=== PATIENT | female | born 2000 | race Caucasian/White ===

== ENCOUNTER 2019-07-25 19:27 | Emergency (ER) | payer OTHER ==
--- NOTE | 2019-07-25 19:36 | PDOC ---
History of Present Illness - General Stated Complaint: Seizure Time Seen by Provider: 07/25/19 19:36 Past History - Past Medical History Allergies/Adverse Reactions: Allergies Allergy/AdvReac Type Severity Reaction Status Date / Time No Known Allergies Allergy Verified 07/25/19 21:14 Home Medications: Ambulatory Orders Valacyclovir HCl [Valtrex -] 1,000 mg PO TID #21 tablet 07/25/19 levETIRAcetam [Keppra -] 500 mg PO BID #60 tablet 07/25/19 ED Treatment Course - LABORATORY CBC & Chemistry Diagram: 07/25/19 20:29 07/25/19 20:29 Medical Decision Making - Medical Decision Making HPI: 18yo F with PMH of seizure disorder, depression, anxiety, schizophrenia presenting after a witnessed seizure. Patient is on keppra but ran out two days ago. Around 6:45p, patient stated she started feeling dizzy after which her coworkers saw her with generalized shaking motion and cheek biting lasting about ten minutes. Patient states this description is consistent with her usual seizures. Bystanders kept her from falling by keeping her on a chair and she did not hit her head. No urinary/stool incontinence. Does not know what her seizure triggers are. Last seizure was three weeks ago. Endorsing pain on her right side as her body twisted to the right while she was seizing. Has had a rash on her anterior lower left abdomen for several months for which she was given a cream. Patient had only eaten a croissant today. No fevers or chills. ROS: Constitutional: no fever, no chills HEENT: no throat pain, no dysphagia Cardiovascular: no chest pain, no palpitations Respiratory: no cough, no shortness of breath Gastrointestinal: no abdominal pain, no nausea Genitourinary: no dysuria, no hematuria Musculoskeletal: no myalgia, no arthralgia Skin: +rash, +itching Neurologic: +seizure, no weakness PE: General: Awake, alert, and fully oriented, in no acute distress Head: No signs of trauma Eyes: EOMI, sclera anicteric ENT: Moist mucus membranes Neck: Normal ROM, supple Lungs: Lungs clear, Normal breath sounds Cardio: Regular rhythm, S1 and S2 present Abdomen: Soft, nontender. No guarding, no rebound, no masses Extremities: Normal range of motion, Distal pulses present SKIN: Warm, Dry, normal turgor; vesicular/scabbed rash on left T8-T9 dermatome consistent with herpes zoster Neurologic: Cranial nerves II through XII intact. Normal speech, sensation, strength, coordination, and gait. ED Course/MDM: DDX including but not limited to seizure, infection, , anemia, metabolic derangement Labs Glo Valtrex Fluids 07/25/19 19:36 Patient feeling better after receiving fluids 07/25/19 22:20 Laboratory Tests 07/25/19 07/25/19 07/25/19 20:29 20:29 21:34 WBC 9.0 RBC 4.54 Hgb 11.6 Hct 36.7 MCV 81.0 MCH 25.7 MCHC 31.7 L RDW 19.1 H Plt Count 329 MPV 8.0 Absolute Neuts (auto) 5.6 Neutrophils % 62.4 Lymphocytes % 19.2 Monocytes % 7.6 Eosinophils % 10.5 H Basophils % 0.3 Nucleated RBC % 0 Sodium 141 Potassium 3.9 Chloride 109 H Carbon Dioxide 26 Anion Gap 6 L BUN 7.6 Creatinine 0.8 Est GFR (CKD-EPI)AfAm 122.14 Est GFR (CKD-EPI)NonAf 105.39 Random Glucose 93 Calcium 8.7 Total Bilirubin 0.3 AST 14 L ALT 15 Alkaline Phosphatase 61 Total Protein 6.7 Albumin 3.8 Urine Color Urine Appearance Urine pH Ur Specific Blackstone Urine Protein Urine Glucose (UA) Urine Ketones Urine Blood Urine Nitrite Urine Bilirubin Urine Urobilinogen Ur Leukocyte Esterase Urine WBC (Auto) Urine RBC (Auto) Urine Casts (Auto) U Epithel Cells (Auto) Urine Bacteria (Auto) Urine HCG, Qual Negative 07/25/19 21:34 WBC RBC Hgb Hct MCV MCH MCHC RDW Plt Count MPV Absolute Neuts (auto) Neutrophils % Lymphocytes % Monocytes % Eosinophils % Basophils % Nucleated RBC % Sodium Potassium Chloride Carbon Dioxide Anion Gap BUN Creatinine Est GFR (CKD-EPI)AfAm Est GFR (CKD-EPI)NonAf Random Glucose Calcium Total Bilirubin AST ALT Alkaline Phosphatase Total Protein Albumin Urine Color Yellow Urine Appearance Cloudy Urine pH 5.5 Ur Specific Blackstone 1.013 Urine Protein Negative Urine Glucose (UA) Negative Urine Ketones Negative Urine Blood Negative Urine Nitrite Negative Urine Bilirubin Negative Urine Urobilinogen 0.2 Ur Leukocyte Esterase Trace Urine WBC (Auto) 12 Urine RBC (Auto) 1 Urine Casts (Auto) 2 U Epithel Cells (Auto) 7.3 Urine Bacteria (Auto) 1009.4 Urine HCG, Qual No leukocytosis UA negative for infection negative Electrolytes unremarkable Seizure today likely due to subtherapeutic keppra. Pending keppra level as this is a send-out. Keppra and Valtrex prescriptions sent to pharmacy Patient given primary care physician referral She will follow up with her neurologist Discharged with return precautions *DC/Admit/Observation/Transfer Diagnosis at time of Disposition: Seizure Herpes zoster Qualifiers: Herpes zoster complications: without complications Qualified Code(s): B02.9 - Zoster without complications - Discharge Dispostion Disposition: HOME Condition at time of disposition: Stable - Prescriptions Prescriptions: levETIRAcetam [Keppra -] 500 mg PO BID #60 tablet Valacyclovir HCl [Valtrex -] 1,000 mg PO TID #21 tablet - Referrals Schedule a call back: keppra level for pt's neurologist Referrals: [facility] – [place] [facility] [place] [Provider Group] - Patient Instructions Printed Discharge Instructions: DI for Shingles, DI for Seizure Disorder -- Adult Additional Instructions: You came to the emergency department for a seizure. Lab work did not indicate acute pathology. Prescription for anti-seizure medicine sent to your pharmacy. Take everyday as instructed. Your rash is consistent with shingles. Antiviral medicine sent to your pharmacy. Take everyday as instructed. Follow up with your neurologist as soon as possible to discuss this ED visit and to further evaluate your seizures. Your care is not complete until you do so. Call and make an appointment. Also: follow-up with a primary care provider within 72 hours to discuss this ED visit and to further evaluate your symptoms. Your workup is not complete until you do so. You have been referred to the [facility] in case you do not have a primary care doctor. Call and make an appointment at the number provided. Be aware of common seizure triggers or precipitating factors, including sleep deprivation, alcohol, infection, or illness. Avoid unsupervised activities that might pose danger with sudden loss of consciousness, including bathing, swimming alone, working at heights, and operating heavy machinery like driving. Immediate medical attention is required if you have severe headache, high fever , persistent vomiting, changes in vision, severe muscle pain, dark (tea-colored ) urine, recurrent seizures, or any other new or concerning symptoms. If you think you are having an emergency, call for emergency medical services or present to the emergency department right away. - Post Discharge Activity
[2019-07-25] MEDS ORDERED: SODIUM CHLORIDE 1,000 ML IV STA (20:16)
[2019-07-25] MEDS ORDERED: levETIRAcetam 500 MG/5 ML INJECTION VIAL IVPB ONE (20:17)
[2019-07-25] MEDS ORDERED: valACYclovir HCL 500 MG TABLET (FP) PO ONE (20:18)
--- NOTE | 2019-07-25 20:21 | PDOC ---
Attending Attestation - Resident Resident Name: Amalia Clark - ED Attending Attestation I have performed the following: I have examined & evaluated the patient, The case was reviewed & discussed with the resident, I agree w/resident's findings & plan - HPI HPI: 07/25/19 20:19 Pt had a seizure at her workplace [place]; all she ate today was a croissant and a soda. Her blood sugar by EMS is 80s She has no fever. She felt weak and dizzy; she seized, but didn't hit her head. She was recently started on keppra 1g daily; she ran out and missed 2 days of meds. Pt states that she has been under a great deal of stress. - Physicial Exam PE: 07/25/19 20:20 Pt has no fever. A+Ox3 Neurologically intact She has what looks to be shingles on left T8-T9 dermatome. 07/25/19 22:09 - Medical Decision Making 07/25/19 22:09 Pt has normal labs; high eosinophil count. 07/25/19 23:26 Seizure today likely due to subtherapeutic keppra. Pending keppra level as this is a send-out. Keppra and Valtrex prescriptions sent to pharmacy Patient given primary care physician referral She will follow up with her neurologist Discharged with return precautions
[2019-07-25] MEDS ORDERED: valACYclovir HCL 500 MG TABLET (FP) ONE (20:25)
[2019-07-25 21:20] LABS: BASO % 0.3 % (0-2.0); EOS % 10.5 % (0-4.5); HEMATOCRIT 36.7 % (32.4-45.2); HEMOGLOBIN 11.6 GM/dL (10.7-15.3); LYMPH % 19.2 % (8-40); MCH 25.7 pg (25.7-33.7); MCHC 31.7 g/dl (32.0-36.0); MONO % 7.6 % (3.8-10.2); NEUT % 62.4 % (42.8-82.8); PLATELET COUNT 329 K/MM3 (134-434); RBC 4.54 M/mm3 (3.60-5.2); RDW 19.1 % (11.6-15.6)
[2019-07-25 21:40] LABS: ALBUMIN 3.8 g/dl (3.4-5.0); BILIRUBIN,TOTAL 0.3 mg/dL (0.2-1); BLOOD UREA NITROGEN 7.6 mg/dL (7-18); CALCIUM 8.7 mg/dL (8.5-10.1); CREATININE 0.8 mg/dL (0.55-1.3); POTASSIUM 3.9 mmol/L (3.5-5.1); TOT PROT 6.7 g/dl (6.4-8.2)
[2019-07-25 22:17] LABS: EPI CELLS 7.3 /HPF (0-5/HPF); HYALINE CASTS 2 /lpf (0-8); PH,URINE 5.5 (5.0-8.0); URINE APPEARANCE CLOUDY; URINE BACTERIA 1009.4 /hpf (NEGATIVE); URINE BILIRUBIN NEGATIVE (NEGATIVE); URINE COLOR YELLOW; URINE GLUCOSE (UA) NEGATIVE (NEGATIVE); URINE KETONE NEGATIVE (NEGATIVE); URINE LEUK ESTERASE TRACE (NEGATIVE); URINE NITRITE NEGATIVE (NEGATIVE); URINE PROTEIN NEGATIVE (NEGATIVE); URINE RBC 1 /hpf (0-4); URINE UROBILINOGEN 0.2 mg/dL (0.2-1.0); URINE WBC 12 /hpf (0-5)
[2019-07-25] MEDS ORDERED: ACETAMINOPHEN 500 MG TABLET (FP) PO ONE (23:22)
[2019-07-25] MEDS ORDERED: ACETAMINOPHEN 325 MG TABLET (FP) ONE (23:24)
[2019-07-26 04:14] VITALS: BP 117/78; PULSE 66; TEMP 98.2
== END 2019-07-25 23:43 | disposition home or self-care (01) ==
LOC: EDBD 19:27 → JER 19:27
PROC: 3E0337Z Introduction of Electrolytic and Water Balance Substance into Peripheral Vein, Percutaneous Approach (ICD-10-PCS; principal; 2019-07-25)
PROC: 3E033GC Introduction of Other Therapeutic Substance into Peripheral Vein, Percutaneous Approach (ICD-10-PCS; 2019-07-25)
DX: G40.909 Epilepsy, unspecified, not intractable, without status epilepticus (principal); B02.9 Zoster without complications; Z91.14 Patient's other noncompliance with medication regimen
CPT/HCPCS: 36415; 80053; 80177; 81003; 84703; 85025; 99283-25; J7030

== ENCOUNTER 2019-09-07 14:40 | Emergency (ER) | payer OTHER ==
[2019-09-07 14:45] VITALS: TEMP 98.1; BMI 20.3
[2019-09-07] MEDS ORDERED: FAMOTIDINE 20 MG/50 ML IVPB 20 MG/50 ML MG IVPB ONE ×2 (15:39→15:58)
[2019-09-07] MEDS ORDERED: SODIUM CHLORIDE 1,000 ML IV STA (15:39)
--- NOTE | 2019-09-07 15:39 | PDOC ---
History of Present Illness - General History Source: Patient Exam Limitations: No Limitations <Elisejose luisKeren [email or web address] - Last Filed: 09/08/19 12:50> <Lupillo Humphreys - Last Filed: 09/08/19 16:14> - General Chief Complaint: Respiratory Stated Complaint: COLD SYS/VOMITING BLOOD Time Seen by Provider: 09/07/19 14:48 Past History - Travel Traveled outside of the country in the last 30 days: No Close contact w/someone who was outside of country & ill: No - Past Medical History COPD: No GI Disorders: (colitis) - Psycho Social/Smoking Cessation Hx Smoking History: Never smoked Have you smoked in the past 12 months: No Hx Alcohol Use: No Drug/Substance Use Hx: No <TyreseKerenMary - Last Filed: 09/08/19 12:50> <Lupillo Humphreys - Last Filed: 09/08/19 16:14> - Past Medical History Allergies/Adverse Reactions: Allergies Allergy/AdvReac Type Severity Reaction Status Date / Time No Known Allergies Allergy Verified 09/07/19 14:45 Home Medications: Ambulatory Orders Valacyclovir HCl [Valtrex -] 1,000 mg PO TID #21 tablet 07/25/19 levETIRAcetam [Keppra -] 500 mg PO BID #60 tablet 07/25/19 Cephalexin [Keflex] 500 mg PO BID #10 capsule 09/07/19 Ondansetron HCl [Zofran] 4 mg PO QID #20 tablet 09/07/19 Review of Systems - Review of Systems Able to Perform ROS?: Yes Comments:: 09/07/19 15:44 CONSTITUTIONAL: Absent: fever, chills, diaphoresis, generalized weakness, malaise, loss of appetite HEENT: Present: Congestion. Absent: rhinorrhea, throat pain, throat swelling, difficulty swallowing, mouth swelling, ear pain, eye pain, visual Changes CARDIOVASCULAR: Absent: chest pain, loss of consciousness, palpitations, irregular heart rate, peripheral edema RESPIRATORY: Present: Cough, shortness of breath, Hemoptysis. absent: dyspnea with exertion , orthopnea, wheezing, stridor, GASTROINTESTINAL: Present: Abdominal pain, blood in the stool absent: abdominal pain, abdominal distension, nausea, vomiting, diarrhea, constipation, melena, hematochezia GENITOURINARY: Absent: dysuria, frequency, urgency, hesitancy, hematuria, flank pain, genital pain MUSCULOSKELETAL: Absent: myalgia, arthralgia, joint swelling SKIN: Absent: rash, itching, pallor HEMATOLOGIC/IMMUNOLOGIC: Absent: easy bleeding, easy bruising, lymphadenopathy, frequent infections ENDOCRINE: Absent: unexplained weight gain, unexplained weight loss, heat intolerance, cold intolerance NEUROLOGIC: Absent: headache, focal weakness or paresthesias, dizziness, unsteady gait, seizure, mental status changes, bladder or bowel incontinence PSYCHIATRIC: Absent: anxiety, depression, suicidal or homicidal ideation, hallucinations. Is the patient limited Albanian proficient: No <Mary Xiong - Last Filed: 09/08/19 12:50> *Physical Exam - Vital Signs Last Vital Signs Temp Pulse Resp BP Pulse Ox 98.1 F 75 18 118/60 99 09/07/19 14:44 09/07/19 14:44 09/07/19 14:44 09/07/19 14:44 09/07/19 14:44 - Physical Exam Comments: 09/07/19 15:45 GENERAL: Well developed, well nourished. Awake and alert. No acute distress. HEENT: Normocephalic, atraumatic. PERRLA, EOMI. No conjunctival pallor. Sclera are non- icteric. Moist mucous membranes. Oropharynx is clear. NECK: Supple. Full ROM. No JVD. Carotid pulses 2+ and symmetric, without bruits. No thyromegaly. No lymphadenopathy. CARDIOVASCULAR: Regular rate and rhythm. No murmurs, rubs, or gallops. Distal pulses are 2+ and symmetric. PULMONARY: No evidence of respiratory distress. Lungs clear to auscultation bilaterally. No wheezing, rales or rhonchi. ABDOMINAL: Diffuse abdominal tenderness throughout all quadrants. Soft. Non-tender. Non- distended. No rebound or guarding. No organomegaly. Normoactive bowel sounds. Rectal: No external hemorrhoids or lesions noted to the anus. Good tone. No mallory blood noted. MUSCULOSKELETAL Normal range of motion at all joints. No bony deformities or tenderness. No CVA tenderness. EXTREMITIES: No cyanosis. No clubbing. No edema. No calf tenderness. SKIN: Warm and dry. Normal capillary refill. No rashes. No jaundice. NEUROLOGICAL: Alert, awake, appropriate. Cranial nerves 2-12 intact. No deficits to light touch and temperature in face, upper extremities and lower extremities. No motor deficits in the in face, upper extremities and lower extremities. Normoreflexic in the upper and lower extremities. Normal speech. Toes are down- going bilaterally. Gait is normal without ataxia. PSYCHIATRIC: Cooperative. Good eye contact. Appropriate mood and affect. <Mary Xiong - Last Filed: 09/08/19 12:50> - Vital Signs Last Vital Signs Temp Pulse Resp BP Pulse Ox 98.1 F 73 17 115/62 97 09/07/19 14:44 09/07/19 19:25 09/07/19 19:25 09/07/19 19:25 09/07/19 19:25 <Lupillo Humphreys - Last Filed: 09/08/19 16:14> ED Treatment Course - LABORATORY CBC & Chemistry Diagram: 09/07/19 16:00 09/07/19 16:00 <Mary Xiong - Last Filed: 09/08/19 12:50> - LABORATORY CBC & Chemistry Diagram: 09/07/19 16:00 09/07/19 16:00 - ADDITIONAL ORDERS Additional order review: 09/07/19 16:00 RBC 4.23 MCV 82.6 MCHC 34.3 RDW 16.3 H MPV 8.5 Neutrophils % 67.1 Lymphocytes % 19.6 Monocytes % 7.8 Eosinophils % 5.0 H Basophils % 0.5 - Medications Given in the ED: ED Medications Discontinued Medications Generic Name Dose Route Start Last Admin Trade Name Freq PRN Reason Stop Dose Admin Al Hydroxide/Mg Hydroxide 30 ml 09/07/19 15:40 09/07/19 16:00 Mylanta Oral Suspension - PO 09/07/19 15:41 30 ml ONCE ONE Administration Albuterol/Ipratropium 1 amp 09/07/19 15:40 09/07/19 16:05 Duoneb - NEB 09/07/19 15:41 1 amp ONCE ONE Administration Cephalexin HCl 500 mg 09/07/19 19:34 09/07/19 20:00 Keflex - PO 09/07/19 19:35 500 mg ONCE ONE Administration Dexamethasone 10 mg 09/07/19 15:40 09/07/19 16:15 Decadron Liquid - PO 09/07/19 15:41 10 mg ONCE ONE Administration Famotidine/Sodium Chloride 20 mg in 50 mls @ 100 mls/hr 09/07/19 15:39 16:15 Pepcid 20 Mg Premixed Ivpb - IVPB 09/07/19 16:08 100 mls/hr ONCE ONE Administration Sodium Chloride 1,000 mls @ 1,000 mls/hr 09/07/19 15:39 09/07/19 16:15 Normal Saline - IV 09/07/19 16:38 1,000 mls/hr ASDIR STA Administration <Lupillo Humphreys - Last Filed: 09/08/19 16:14> Medical Decision Making - Medical Decision Making 09/07/19 15:46 Patient is a 19-year-old female past medical history of ulcerative colitis, seizures, presents to the ER today for cough and wheezing for 4 days as well as abdominal pain. She states that she has a dry cough and she feels tight. She states she had asthma as a child. Never intubated. She is also congested. The patient states she believes she is having an ulcerative colitis flare. She states that she has been coughing so much she is coughing up blood. She states that initially there was streaks of blood however today she noticed a red clots when she coughed. She states she is also been having rectal bleeding and there was blood to fill the toilet bowl. She states she has diffuse abdominal tenderness and does not want to eat anything. Denies fevers, chills, earache, sore throat, chest pain, nausea, vomiting. A/P: URI/UC flare On exam patient diffusely tender in the abdomen. Lungs are clear to auscultation bilaterally. Basic labs, urine, chest x-ray ordered Stool for occult blood performed Pepcid, Mylanta for the GI upset. Albuterol and steroids given for cough. Steroid should cover UC flareup as well. Reevaluate <Mary Xiong - Last Filed: 09/08/19 12:50> - Medical Decision Making The patient was seen and evaluated in conjunction with REDD Xiong under my direct supervision, ancillary studies were reviewed. I agree with the plan as outlined by REDD Xiong . <Lupillo Humphreys - Last Filed: 09/08/19 16:14> Discharge - Discharge Information Problems reviewed: Yes <Mary Xiong - Last Filed: 09/08/19 12:50> <Lupillo Humphreys - Last Filed: 09/08/19 16:14> - Discharge Information Clinical Impression/Diagnosis: Abdominal pain affecting Qualifiers: Weeks of gestation: less than 8 weeks Qualified Code(s): Z3A.01 - Less than 8 weeks gestation of UTI (urinary tract infection) Qualifiers: Urinary tract infection type: site unspecified Hematuria presence: without hematuria Qualified Code(s): N39.0 - Urinary tract infection, site not specified Condition: Stable Disposition: HOME - Additional Discharge Information Prescriptions: Cephalexin [Keflex] 500 mg PO BID #10 capsule Ondansetron HCl [Zofran] 4 mg PO QID #20 tablet - Follow up/Referral Referrals: Camelia Gomez MD [Staff Physician] - Dina Noel MD [Primary Care Provider] - - Patient Discharge Instructions Patient Printed Discharge Instructions: DI for Nausea -- Adult, DI for Abdominal Pain -- Early Additional Instructions: Your Discharge Instructions: You must call primary care physician within 24 hours to arrange follow-up. Return to the Emergency Department with any new, persistent or worsening symptoms, for fever, chills, SOB, dizziness or any other concerning changes that may occur. 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 Return to the emergency room for bleeding more than a pad an hour. - Post Discharge Activity
[2019-09-07] MEDS ORDERED: MAG HYDROX/AL HYDROX/SIMETH 30 ML UNIT-DOSE CUP PO ONE (15:40)
[2019-09-07] MEDS ORDERED: DEXAMETHASONE LIQUID 0.5 MG/5 ML PO ONE (15:40)
[2019-09-07] MEDS ORDERED: ALBUTEROL SO4 2.5/IPRATROPIUM 0.5 INH SOL 3 ML VIAL.NEB. NEB ONE ×2 (15:40→15:57)
[2019-09-07] MEDS ORDERED: DEXAMETHASONE SOD PHOSPHATE 10 MG/1 ML VIAL ONE (15:57)
[2019-09-07] MEDS ORDERED: MAG HYDROX/AL HYDROX/SIMETH 30 ML UNIT-DOSE CUP ONE (15:57)
[2019-09-07 16:55] LABS: BASO % 0.5 % (0-2.0); HEMATOCRIT 34.9 % (32.4-45.2); LYMPH % 19.6 % (8-40); MCH 28.3 pg (25.7-33.7); MCHC 34.3 g/dl (32.0-36.0); MEAN CELL VOLUME 82.6 fl (80-96); MEAN PLT VOLUME 8.5 fl (7.5-11.1); MONO % 7.8 % (3.8-10.2); NEUT % 67.1 % (42.8-82.8); PLATELET COUNT 275 K/MM3 (134-434); RBC 4.23 M/mm3 (3.60-5.2); RDW 16.3 % (11.6-15.6)
[2019-09-07 17:02] LABS: HYALINE CASTS 3 /lpf (0-8); PH,URINE 7.5 (5.0-8.0); URINE APPEARANCE CLOUDY; URINE BACTERIA >9000 /hpf (NEGATIVE); URINE BILIRUBIN NEGATIVE (NEGATIVE); URINE COLOR YELLOW; URINE GLUCOSE (UA) NEGATIVE (NEGATIVE); URINE KETONE NEGATIVE (NEGATIVE); URINE LEUK ESTERASE 1+ (NEGATIVE); URINE NITRITE POSITIVE (NEGATIVE); URINE PROTEIN NEGATIVE (NEGATIVE); URINE RBC 1 /hpf (0-4); URINE UROBILINOGEN 0.2 mg/dL (0.2-1.0); URINE WBC 13 /hpf (0-5)
[2019-09-07 17:08] LABS: INR 1.03 (0.83-1.09); PROTHROMBIN TIME (PATIENT) 12.2 SEC (9.7-13.0)
[2019-09-07 17:18] LABS: BILIRUBIN,TOTAL 0.3 mg/dL (0.2-1); BLOOD UREA NITROGEN 7.4 mg/dL (7-18); CALCIUM 8.8 mg/dL (8.5-10.1); CREATININE 0.7 mg/dL (0.55-1.3); POTASSIUM 4.3 mmol/L (3.5-5.1); TOT PROT 7.2 g/dl (6.4-8.2)
--- NOTE | 2019-09-07 19:23 | PDOC ---
*Physical Exam - Vital Signs Last Vital Signs Temp Pulse Resp BP Pulse Ox 98.1 F 75 18 118/60 99 09/07/19 14:44 09/07/19 14:44 09/07/19 14:44 09/07/19 14:44 09/07/19 17:42 <Cong Montalvo - Last Filed: 09/07/19 23:32> - Vital Signs Last Vital Signs Temp Pulse Resp BP Pulse Ox 98.1 F 73 17 115/62 97 09/07/19 14:44 09/07/19 19:25 09/07/19 19:25 09/07/19 19:25 09/07/19 19:25 <PetrLupillo fernandez - Last Filed: 09/08/19 16:10> ED Treatment Course - LABORATORY CBC & Chemistry Diagram: 09/07/19 16:00 09/07/19 16:00 - ADDITIONAL ORDERS Additional order review: Laboratory Results 09/07/19 09/07/19 09/07/19 16:00 16:00 16:00 PT with INR 12.20 INR 1.03 Sodium Potassium Chloride Carbon Dioxide Anion Gap BUN Creatinine Est GFR (CKD-EPI)AfAm Est GFR (CKD-EPI)NonAf Random Glucose Calcium Total Bilirubin AST ALT Alkaline Phosphatase Total Protein Albumin Beta HCG, Quant Urine Color Yellow Urine Appearance Cloudy Urine pH 7.5 D Ur Specific [place] 1.020 Urine Protein Negative Urine Glucose (UA) Negative Urine Ketones Negative Urine Blood Negative Urine Nitrite Positive H Urine Bilirubin Negative Urine Urobilinogen 0.2 Ur Leukocyte Esterase 1+ H Urine WBC (Auto) 13 Urine RBC (Auto) 1 Urine Casts (Auto) 3 U Epithel Cells (Auto) 10.0 Urine Bacteria (Auto) >9000 Urine HCG, Qual Stool Occult Blood Blood Type O POSITIVE Antibody Screen Negative 09/07/19 09/07/19 09/07/19 16:00 16:00 15:50 PT with INR INR Sodium 137 Potassium 4.3 Chloride 105 Carbon Dioxide 27 Anion Gap 5 L BUN 7.4 Creatinine 0.7 Est GFR (CKD-EPI)AfAm 143.54 Est GFR (CKD-EPI)NonAf 123.85 Random Glucose 81 Calcium 8.8 Total Bilirubin 0.3 AST 14 L ALT 14 Alkaline Phosphatase 59 Total Protein 7.2 Albumin 4.0 Beta HCG, Quant 7357.2 Urine Color Urine Appearance Urine pH Ur Specific [place] Urine Protein Urine Glucose (UA) Urine Ketones Urine Blood Urine Nitrite Urine Bilirubin Urine Urobilinogen Ur Leukocyte Esterase Urine WBC (Auto) Urine RBC (Auto) Urine Casts (Auto) U Epithel Cells (Auto) Urine Bacteria (Auto) Urine HCG, Qual Positive Stool Occult Blood Negative Blood Type Antibody Screen 09/07/19 16:00 RBC 4.23 MCV 82.6 MCHC 34.3 RDW 16.3 H MPV 8.5 Neutrophils % 67.1 Lymphocytes % 19.6 Monocytes % 7.8 Eosinophils % 5.0 H Basophils % 0.5 - RADIOLOGY Radiology Studies Ordered: Category Date Time Status TRANSVAGINAL US PREG [US] Stat Ultrasound 09/07/19 17:26 Taken - Medications Given in the ED: ED Medications Discontinued Medications Generic Name Dose Route Start Last Admin Trade Name Freq PRN Reason Stop Dose Admin Al Hydroxide/Mg Hydroxide 30 ml 09/07/19 15:40 09/07/19 16:00 Mylanta Oral Suspension - PO 09/07/19 15:41 30 ml ONCE ONE Administration Albuterol/Ipratropium 1 amp 09/07/19 15:40 09/07/19 16:05 Duoneb - NEB 09/07/19 15:41 1 amp ONCE ONE Administration Dexamethasone 10 mg 09/07/19 15:40 09/07/19 16:15 Decadron Liquid - PO 09/07/19 15:41 10 mg ONCE ONE Administration Famotidine/Sodium Chloride 20 mg in 50 mls @ 100 mls/hr 09/07/19 15:39 16:15 Pepcid 20 Mg Premixed Ivpb - IVPB 09/07/19 16:08 100 mls/hr ONCE ONE Administration Sodium Chloride 1,000 mls @ 1,000 mls/hr 09/07/19 15:39 09/07/19 16:15 Normal Saline - IV 09/07/19 16:38 1,000 mls/hr ASDIR STA Administration <Indiana Montalvo - Last Filed: 09/07/19 23:32> - LABORATORY CBC & Chemistry Diagram: 09/07/19 16:00 09/07/19 16:00 - ADDITIONAL ORDERS Additional order review: 09/07/19 16:00 RBC 4.23 MCV 82.6 MCHC 34.3 RDW 16.3 H MPV 8.5 Neutrophils % 67.1 Lymphocytes % 19.6 Monocytes % 7.8 Eosinophils % 5.0 H Basophils % 0.5 - Medications Given in the ED: ED Medications Discontinued Medications Generic Name Dose Route Start Last Admin Trade Name Maegan PRN Reason Stop Dose Admin Al Hydroxide/Mg Hydroxide 30 ml 09/07/19 15:40 09/07/19 16:00 Mylanta Oral Suspension - PO 09/07/19 15:41 30 ml ONCE ONE Administration Albuterol/Ipratropium 1 amp 09/07/19 15:40 09/07/19 16:05 Duoneb - NEB 09/07/19 15:41 1 amp ONCE ONE Administration Cephalexin HCl 500 mg 09/07/19 19:34 09/07/19 20:00 Keflex - PO 09/07/19 19:35 500 mg ONCE ONE Administration Dexamethasone 10 mg 09/07/19 15:40 09/07/19 16:15 Decadron Liquid - PO 09/07/19 15:41 10 mg ONCE ONE Administration Famotidine/Sodium Chloride 20 mg in 50 mls @ 100 mls/hr 09/07/19 15:39 16:15 Pepcid 20 Mg Premixed Ivpb - IVPB 09/07/19 16:08 100 mls/hr ONCE ONE Administration Sodium Chloride 1,000 mls @ 1,000 mls/hr 09/07/19 15:39 09/07/19 16:15 Normal Saline - IV 09/07/19 16:38 1,000 mls/hr ASDIR STA Administration <Lupillo Humphreys - Last Filed: 09/08/19 16:10> Medical Decision Making - Medical Decision Making Patient endorsed to me to follow labs and disposition. Laboratory Tests 09/07/19 09/07/19 09/07/19 15:50 16:00 16:00 WBC 9.0 Hgb 12.0 Hct 34.9 Plt Count 275 Sodium 137 Potassium 4.3 Chloride 105 Carbon Dioxide 27 Anion Gap 5 L BUN 7.4 Creatinine 0.7 Random Glucose 81 Beta HCG, Quant 7357.2 Urine Color Urine Appearance Urine pH Ur Specific [place] Urine Protein Urine Glucose (UA) Urine Ketones Urine Blood Urine Nitrite Urine Bilirubin Urine Urobilinogen Ur Leukocyte Esterase Urine WBC (Auto) Urine RBC (Auto) Urine HCG, Qual Stool Occult Blood Negative 09/07/19 09/07/19 16:00 16:00 WBC Hgb Hct Plt Count Sodium Potassium Chloride Carbon Dioxide Anion Gap BUN Creatinine Random Glucose Beta HCG, Quant Urine Color Yellow Urine Appearance Cloudy Urine pH 7.5 D Ur Specific [place] 1.020 Urine Protein Negative Urine Glucose (UA) Negative Urine Ketones Negative Urine Blood Negative Urine Nitrite Positive H Urine Bilirubin Negative Urine Urobilinogen 0.2 Ur Leukocyte Esterase 1+ H Urine WBC (Auto) 13 Urine RBC (Auto) 1 Urine HCG, Qual Positive Stool Occult Blood 09/07/19 19:18 Patient Full Name: FABIEN BRIZUELA Patient Accession No: [id number] Patient : 2000 Reason for Exam: r/o ectopic Referring Physician: Patient Name: CHATA CONN THIS IS A PRELIMINARY REPORT FROM [facility]PER[facility] DATE OF SERVICE: 2019-09-07 18:04:29 IMAGES: 29 EXAM: TRANSVAGINAL US PREG HISTORY: Rule out ectopic. COMPARISON: None. FINDINGS/IMPRESSION: Single live intrauterine measuring 5 weeks 5 days with estimated delivery date of May 04, 2022. No measurable heart rate at this time. No glenroy-gestational fluid collections. No adnexal masses or fluid collections. Ovaries grossly unremarkable. Consider short interval follow-up as clinically warranted. THIS DOCUMENT HAS BEEN ELECTRONICALLY SIGNED Sylvia Bray MD 09/07/2019 19:10 EST Pres[place]. Please call [facility] Report [facility] [phone] ([phone]) with questions. INTERPRETING RADIOLOGIST: Sylvia Bray MD Electronically Signed: Sep 07, 2019 07:12PM EST 09/07/19 19:19 09/07/19 19:22 I discussed the physical exam findings, ancillary test results and final diagnoses with the patient. I answered all of the patient's questions. The patient was satisfied with the care received and felt comfortable with the discharge plan and treatment plan. The Patient agrees to follow up with the primary care physician within 24-72 hours. <Indiana Montalvo - Last Filed: 09/07/19 23:32> - Medical Decision Making The patient was seen and evaluated in conjunction with REDD Torres under my direct supervision, ancillary studies were reviewed. I agree with the plan as outlined by REDD Torres . <Lupillo Humphreys - Last Filed: 09/08/19 16:10> Discharge - Discharge Information Problems reviewed: Yes <Indiana Montalvo - Last Filed: 09/07/19 23:32> <Lupillo Humphreys - Last Filed: 09/08/19 16:10> - Discharge Information Clinical Impression/Diagnosis: Abdominal pain affecting Qualifiers: Weeks of gestation: less than 8 weeks Qualified Code(s): Z3A.01 - Less than 8 weeks gestation of UTI (urinary tract infection) Qualifiers: Urinary tract infection type: site unspecified Hematuria presence: without hematuria Qualified Code(s): N39.0 - Urinary tract infection, site not specified Condition: Stable Disposition: HOME - Additional Discharge Information Prescriptions: Cephalexin [Keflex] 500 mg PO BID #10 capsule Ondansetron HCl [Zofran] 4 mg PO QID #20 tablet - Follow up/Referral Referrals: Dina Noel MD [Primary Care Provider] - Camleia Gomez MD [Staff Physician] - - Patient Discharge Instructions Patient Printed Discharge Instructions: DI for Nausea -- Adult, DI for Abdominal Pain -- Early Additional Instructions: Your Discharge Instructions: You must call primary care physician within 24 hours to arrange follow-up. Return to the Emergency Department with any new, persistent or worsening symptoms, for fever, chills, SOB, dizziness or any other concerning changes that may occur. Follow-up with your [facility] call for an appointment. Return to the emergency room for bleeding more than a pad an hour. - Post Discharge Activity
[2019-09-07] MEDS ORDERED: CEPHALEXIN MONOHYDRATE 500 MG CAPSULE (UD) PO ONE (19:34)
[2019-09-07 19:47] VITALS: BP 115/62; PULSE 73
[2019-09-07] MEDS ORDERED: CEPHALEXIN MONOHYDRATE 500 MG CAPSULE (UD) ONE (19:57)
== END 2019-09-07 19:45 | disposition home or self-care (01) ==
LOC: JER 14:40 → JERFT 14:40 → JER 19:45
PROC: 3E0F7GC Introduction of Other Therapeutic Substance into Respiratory Tract, Via Natural or Artificial Opening (ICD-10-PCS; principal; 2019-09-07)
PROC: 3E033GC Introduction of Other Therapeutic Substance into Peripheral Vein, Percutaneous Approach (ICD-10-PCS; 2019-09-07)
DX: O26.891 Other specified pregnancy related conditions, first trimester (principal); O23.41 Unspecified infection of urinary tract in pregnancy, first trimester; R10.9 Unspecified abdominal pain; B96.89 Other specified bacterial agents as the cause of diseases classified elsewhere; Z3A.01 Less than 8 weeks gestation of pregnancy
CPT/HCPCS: 36415; 76817-TC; 80053; 81003; 82272; 84702; 84703; 85025; 85610; 86850; 86900; 86901; 87086; 87186; 94640; 96365; 99283-25; J7030

== ENCOUNTER 2021-06-30 01:44 | Inpatient (IN) | payer OTHER ==
[2021-06-30] MEDS ORDERED: ONDANSETRON 4 MG/2 ML VIAL IVPUSH ONE (03:35)
[2021-06-30] MEDS ORDERED: SODIUM CHLORIDE 1,000 ML IV STA ×2 (03:35→10:55)
[2021-06-30] MEDS ORDERED: morphine CARPU-JECT 4 MG/1 ML DISP.SYRIN IVPUSH ONE (03:35)
[2021-06-30] MEDS ORDERED: ONDANSETRON 4 MG/2 ML VIAL ONE (03:48)
[2021-06-30] MEDS ORDERED: morphine SULFATE 4 MG/ML VIAL ONE (03:48)
[2021-06-30 04:51] LABS: BASO % 0.3 % (0-2.0); EOS % 0.1 % (0-4.5); HEMATOCRIT 38.9 % (32.4-45.2); HEMOGLOBIN 13.1 GM/dL (10.7-15.3); LYMPH % 4.6 % (8-40); MCH 28.2 pg (25.7-33.7); MCHC 33.7 g/dl (32.0-36.0); MEAN CELL VOLUME 83.8 fl (80-96); MEAN PLT VOLUME 8.5 fl (7.5-11.1); PLATELET COUNT 200 10^3/uL (134-434); RBC 4.64 M/mm3 (3.60-5.2); RDW 14.5 % (11.6-15.6); WHITE BLOOD COUNT 10.3 K/mm3 (4.0-10.0)
[2021-06-30 05:14] LABS: CALCIUM 9.2 mg/dL (8.5-10.1)
[2021-06-30 05:15] LABS: BLOOD UREA NITROGEN 16.4 mg/dL (7-18)
[2021-06-30 05:17] LABS: CREATININE 1.1 mg/dL (0.55-1.3)
[2021-06-30 05:19] LABS: BILIRUBIN,TOTAL 0.6 mg/dL (0.2-1)
[2021-06-30 05:28] LABS: EPI CELLS 11 /uL (0-25.1); HYALINE CASTS 4 /uL (0-3.1); URINE APPEARANCE CLOUDY; URINE BACTERIA 5240 /uL (0-1359); URINE BILIRUBIN NEGATIVE (NEGATIVE); URINE COLOR YELLOW; URINE GLUCOSE (UA) NEGATIVE (NEGATIVE); URINE KETONE TRACE (NEGATIVE); URINE LEUK ESTERASE 1+ (NEGATIVE); URINE NITRITE NEGATIVE (NEGATIVE); URINE PROTEIN TRACE (NEGATIVE); URINE WBC 244 /uL (0-25.8)
[2021-06-30 05:37] LABS: URINE RBC 38.3 /uL (0-23.9)
[2021-06-30] MEDS ORDERED: CEFTRIAXONE 1 GM in DEXTROSE 5%-WATER - 100 ML IVPB ONE (05:44)
[2021-06-30] MEDS ORDERED: CEFTRIAXONE 1 GM/50 ML BAG ONE (05:46)
[2021-06-30] MEDS ORDERED: ACETAMINOPHEN 1000 MG/100 ML VIAL (NON FORMULARY) IVPB ONE (07:50)
[2021-06-30] MEDS ORDERED: ACETAMINOPHEN INJECTION 100 ML IVPB ONE (08:30)
[2021-06-30] MEDS ORDERED: SODIUM CHLORIDE 500 ML IV STA ×2 (09:03→11:09)
[2021-06-30] MEDS: SODIUM CHLORIDE 1,000 ML IV SCH (09:26)
[2021-06-30] MEDS ORDERED: AZITHROMYCIN IVPB 500 MG/250 ML BAG IVPB ONE (11:20)
[2021-06-30] MEDS ORDERED: PT OWN MED DRAWER 7, Y5N ONE (11:20)
[2021-06-30] MEDS ORDERED: ENOXAPARIN NA (PORCINE) 40 MG/0.4 ML DISP.SYRIN SQ ONE (11:21)
[2021-06-30] MEDS: ENOXAPARIN NA (PORCINE) 40 MG/0.4 ML DISP.SYRIN SQ SCH (11:37)
[2021-06-30] MEDS: AZITHROMYCIN IVPB 500 MG/250 ML BAG IVPB SCH (11:37)
[2021-06-30 13:26] VITALS: BMI 24.7
[2021-06-30] MEDS: ACETAMINOPHEN 1000 MG/100 ML VIAL (NON FORMULARY) IVPB PRN (13:38)
[2021-06-30] MEDS: MELATONIN 1 MG TABLET PO SCH (21:23)
[2021-06-30] MEDS ORDERED: MELATONIN 5 MG TABLETS PO SCH (22:00)
[2021-07-01] MEDS: ACETAMINOPHEN 1000 MG/100 ML VIAL (NON FORMULARY) IVPB PRN (01:20)
[2021-07-01] MEDS: HYDROmorphone HCl 2 MG/ML VIAL IVPUSH PRN ×3 (06:00→21:22)
[2021-07-01] MEDS ORDERED: cefTRIAXone SODIUM 1 GM VIAL ONE (09:29)
[2021-07-01] MEDS ORDERED: DEXTROSE 5%-WATER - 50 ML IVPB ONE ×3 (09:29→19:04)
[2021-07-01 09:30] LABS: HEMATOCRIT 30.4 % (32.4-45.2); HEMOGLOBIN 10.2 GM/dL (10.7-15.3); MCH 28.6 pg (25.7-33.7); MCHC 33.7 g/dl (32.0-36.0); MEAN CELL VOLUME 84.9 fl (80-96); PLATELET COUNT 164 10^3/uL (134-434); RBC 3.57 M/mm3 (3.60-5.2); RDW 15.2 % (11.6-15.6); WHITE BLOOD COUNT 7.6 K/mm3 (4.0-10.0)
[2021-07-01] MEDS: ENOXAPARIN NA (PORCINE) 40 MG/0.4 ML DISP.SYRIN SQ SCH (09:35)
[2021-07-01] MEDS ORDERED: SODIUM CHLORIDE 500 ML IV STA (09:40)
[2021-07-01] MEDS ORDERED: PT OWN MED DRAWER 7, Y5N ONE ×3 (09:48→13:51)
[2021-07-01] MEDS ORDERED: CEFTRIAXONE 1 GM in DEXTROSE 5%-WATER - 50 ML IVPB SCH (10:00)
[2021-07-01 10:05] LABS: BLOOD UREA NITROGEN 10.9 mg/dL (7-18)
[2021-07-01 10:09] LABS: CREATININE 0.5 mg/dL (0.55-1.3)
[2021-07-01 10:30] LABS: CALCIUM 7.6 mg/dL (8.5-10.1)
[2021-07-01] MEDS: AZITHROMYCIN IVPB 500 MG/250 ML BAG IVPB SCH (10:42)
[2021-07-01] MEDS: SODIUM CHLORIDE 1,000 ML IV SCH ×2 (10:45→13:54)
[2021-07-01] MEDS ORDERED: PIPERACILLIN/TAZOBACTAM 3.375 GM VIAL IVPB ONE ×3 (10:46→19:04)
[2021-07-01] MEDS: PIPERACILLIN/TAZOB 3.375 GM 3.375 GM in DEXTROSE 5%-WATER - 50 ML IVPB SCH ×2 (11:01→19:06)
[2021-07-01] MEDS: ONDANSETRON 4 MG/2 ML VIAL IVPUSH PRN (11:48)
[2021-07-01] MEDS ORDERED: ALBUTEROL SO4 2.5/IPRATROPIUM 0.5 INH SOL 3 ML VIAL.NEB. NEB PRN (12:50)
[2021-07-01] MEDS: MELATONIN 1 MG TABLET PO SCH (21:22)
[2021-07-02] MEDS ORDERED: PIPERACILLIN/TAZOBACTAM 3.375 GM VIAL IVPB ONE ×3 (02:30→17:17)
[2021-07-02] MEDS ORDERED: DEXTROSE 5%-WATER - 50 ML IVPB ONE ×3 (02:31→17:17)
[2021-07-02] MEDS: PIPERACILLIN/TAZOB 3.375 GM 3.375 GM in DEXTROSE 5%-WATER - 50 ML IVPB SCH ×3 (02:36→17:34)
[2021-07-02] MEDS: SODIUM CHLORIDE 1,000 ML IV SCH ×2 (02:39→10:01)
[2021-07-02] MEDS: HYDROmorphone HCl 2 MG/ML VIAL IVPUSH PRN (03:52)
[2021-07-02 09:07] LABS: BASO % 0.2 % (0-2.0); EOS % 2.9 % (0-4.5); HEMATOCRIT 29.4 % (32.4-45.2); HEMOGLOBIN 10.1 GM/dL (10.7-15.3); LYMPH % 22.6 % (8-40); MCH 28.8 pg (25.7-33.7); MCHC 34.3 g/dl (32.0-36.0); MEAN CELL VOLUME 84.1 fl (80-96); MEAN PLT VOLUME 8.8 fl (7.5-11.1); MONO % 6.8 % (3.8-10.2); NEUT % 67.5 % (42.8-82.8); PLATELET COUNT 193 10^3/uL (134-434); RDW 15.1 % (11.6-15.6); WHITE BLOOD COUNT 6.7 K/mm3 (4.0-10.0)
[2021-07-02 09:25] LABS: CALCIUM 7.8 mg/dL (8.5-10.1)
[2021-07-02 09:27] LABS: BLOOD UREA NITROGEN 4.9 mg/dL (7-18); MAGNESIUM 1.9 mg/dL (1.8-2.4)
[2021-07-02 09:30] LABS: BILIRUBIN,TOTAL 0.5 mg/dL (0.2-1); CREATININE 0.7 mg/dL (0.55-1.3)
[2021-07-02] MEDS ORDERED: oxyCODONE HCL 5 MG TABLET PO PRN (09:33)
[2021-07-02 09:36] LABS: ALBUMIN 2.5 g/dl (3.4-5.0); TOT PROT 5.2 g/dl (6.4-8.2)
[2021-07-02] MEDS ORDERED: PT OWN MED DRAWER 7, Y5N ONE ×3 (11:39→12:44)
[2021-07-02] MEDS: HYDROmorphone HCl 2 MG/ML VIAL IVPB PRN (12:12)
[2021-07-02] MEDS: DOCUSATE SODIUM 100 MG CAPSULE (FP) PO SCH (22:57)
[2021-07-02] MEDS: oxyCODONE HCL 5 MG TABLET PO PRN (22:58)
[2021-07-02] MEDS: MELATONIN 1 MG TABLET PO SCH (22:59)
[2021-07-02] MEDS: ONDANSETRON 4 MG/2 ML VIAL IVPUSH PRN (23:03)
[2021-07-03] MEDS ORDERED: PIPERACILLIN/TAZOBACTAM 3.375 GM VIAL IVPB ONE ×3 (01:24→17:19)
[2021-07-03] MEDS ORDERED: DEXTROSE 5%-WATER - 50 ML IVPB ONE ×3 (01:24→17:19)
[2021-07-03] MEDS: HYDROmorphone HCl 2 MG/ML VIAL IVPB PRN ×2 (01:42→06:54)
[2021-07-03] MEDS: PIPERACILLIN/TAZOB 3.375 GM 3.375 GM in DEXTROSE 5%-WATER - 50 ML IVPB SCH ×3 (01:43→17:31)
[2021-07-03] MEDS: SODIUM CHLORIDE 1,000 ML IV SCH ×4 (01:44→17:31)
[2021-07-03 09:09] LABS: BASO % 0.4 % (0-2.0); EOS % 4.3 % (0-4.5); HEMATOCRIT 27.7 % (32.4-45.2); HEMOGLOBIN 9.6 GM/dL (10.7-15.3); MCH 28.9 pg (25.7-33.7); MCHC 34.6 g/dl (32.0-36.0); MEAN CELL VOLUME 83.7 fl (80-96); MEAN PLT VOLUME 8.6 fl (7.5-11.1); MONO % 7.7 % (3.8-10.2); NEUT % 50.6 % (42.8-82.8); PLATELET COUNT 209 10^3/uL (134-434); RBC 3.31 M/mm3 (3.60-5.2); RDW 15.1 % (11.6-15.6); WHITE BLOOD COUNT 4.8 K/mm3 (4.0-10.0)
[2021-07-03 09:49] LABS: ALBUMIN 2.5 g/dl (3.4-5.0); BLOOD UREA NITROGEN 5.3 mg/dL (7-18); CALCIUM 7.8 mg/dL (8.5-10.1)
[2021-07-03 09:52] LABS: BILIRUBIN,TOTAL 0.4 mg/dL (0.2-1); CREATININE 0.7 mg/dL (0.55-1.3)
[2021-07-03 09:53] LABS: TOT PROT 5.4 g/dl (6.4-8.2)
[2021-07-03] MEDS: ENOXAPARIN NA (PORCINE) 40 MG/0.4 ML DISP.SYRIN SQ SCH ×2 (10:30→13:43)
[2021-07-03] MEDS: oxyCODONE HCL 5 MG TABLET PO PRN (21:27)
[2021-07-03] MEDS: DOCUSATE SODIUM 100 MG CAPSULE (FP) PO SCH (21:27)
[2021-07-03] MEDS: MELATONIN 1 MG TABLET PO SCH (21:27)
[2021-07-04] MEDS ORDERED: diphenhydrAMINE HCL 25 MG CAPSULE (FP) PO ONE (00:35)
[2021-07-04 09:17] LABS: BASO % 0.5 % (0-2.0); EOS % 4.6 % (0-4.5); HEMATOCRIT 30.9 % (32.4-45.2); HEMOGLOBIN 10.6 GM/dL (10.7-15.3); MCH 28.8 pg (25.7-33.7); MCHC 34.3 g/dl (32.0-36.0); MEAN CELL VOLUME 84.1 fl (80-96); MEAN PLT VOLUME 8.6 fl (7.5-11.1); MONO % 6.4 % (3.8-10.2); NEUT % 50.5 % (42.8-82.8); PLATELET COUNT 288 10^3/uL (134-434); RBC 3.67 M/mm3 (3.60-5.2); RDW 14.7 % (11.6-15.6)
[2021-07-04 09:32] LABS: CALCIUM 8.4 mg/dL (8.5-10.1)
[2021-07-04 09:33] LABS: ALBUMIN 2.8 g/dl (3.4-5.0); MAGNESIUM 2.3 mg/dL (1.8-2.4)
[2021-07-04 09:36] LABS: CREATININE 0.7 mg/dL (0.55-1.3)
[2021-07-04 09:38] LABS: BILIRUBIN,TOTAL 0.5 mg/dL (0.2-1); TOT PROT 6.6 g/dl (6.4-8.2)
[2021-07-04] MEDS: ENOXAPARIN NA (PORCINE) 40 MG/0.4 ML DISP.SYRIN SQ SCH (09:41)
[2021-07-04 13:55] VITALS: TEMP 98.2
[2021-07-04 13:57] VITALS: BP 112/60; PULSE 54
== END 2021-07-04 15:30 | disposition home or self-care (01) | DRG 463 ==
LOC: JER 01:44 → JERBED 06:34 → J8W 12:47 → UNDODISIN 07-04 13:32
PROVIDERS: ADMIT Internal Medicine; ATTEND Nurse Practitioner Acute Care
DX: N39.0 Urinary tract infection, site not specified (principal); J18.9 Pneumonia, unspecified organism; R56.9 Unspecified convulsions; I95.9 Hypotension, unspecified; J45.909 Unspecified asthma, uncomplicated; F32.9 Major depressive disorder, single episode, unspecified; F41.9 Anxiety disorder, unspecified; R11.2 Nausea with vomiting, unspecified
CPT/HCPCS: 36415; 70450-TC; 71045-TC-FY; 71250-TC; 74176-TC; 80048; 80053; 81003; 83605; 83690; 83735; 84443; 84703; 85025; 85027; 87040; 87086; 87186; 93005; 93010; 99285-25; C9803; J0131; U0003; U0005

== ENCOUNTER 2022-01-25 01:44 | Emergency (ER) | payer OTHER ==
[2022-01-25 01:52] VITALS: BMI 25.3
[2022-01-25] MEDS ORDERED: ACETAMINOPHEN 325 MG TABLET (FP) PO ONE (02:05)
[2022-01-25] MEDS ORDERED: ACETAMINOPHEN 325 MG TABLET (FP) ONE (02:10)
[2022-01-25] MEDS ORDERED: predniSONE 20 MG TABLET (UD) PO ONE (02:37)
[2022-01-25] MEDS ORDERED: predniSONE 20 MG TABLET (UD) ONE (02:41)
[2022-01-25] MEDS ORDERED: ALBUTEROL SO4 2.5/IPRATROPIUM 0.5 INH SOL 3 ML VIAL.NEB. NEB SCH (02:45)
[2022-01-25 03:01] LABS: EPI CELLS 18 /uL (0-25.1); HCG,QUALITATIVE URINE Negative; HYALINE CASTS 1 /uL (0-3.1); URINE APPEARANCE CLEAR; URINE BACTERIA 414 /uL (0-1359); URINE BILIRUBIN NEGATIVE (NEGATIVE); URINE COLOR YELLOW; URINE GLUCOSE (UA) NEGATIVE (NEGATIVE); URINE KETONE TRACE (NEGATIVE); URINE LEUK ESTERASE TRACE (NEGATIVE); URINE NITRITE NEGATIVE (NEGATIVE); URINE PROTEIN NEGATIVE (NEGATIVE); URINE RBC 2 /uL (0-23.9); URINE UROBILINOGEN 0.2 mg/dL (0.2-1.0); URINE WBC 15 /uL (0-25.8)
[2022-01-25 03:56] VITALS: BP 110/63; PULSE 65; TEMP 98.3
[2022-01-25] MEDS ORDERED: ALBUTEROL SO4 HFA INHALER IH ONE ×2 (04:06→04:07)
[2022-01-26 07:07] LABS: SARS-CoV-2 NAA Not Detected (Not Detected)
== END 2022-01-25 04:28 | disposition home or self-care (01) ==
LOC: JER 01:44
PROC: 3E0F7GC Introduction of Other Therapeutic Substance into Respiratory Tract, Via Natural or Artificial Opening (ICD-10-PCS; principal; 2022-01-25)
DX: J45.991 Cough variant asthma (principal); R11.10 Vomiting, unspecified
CPT/HCPCS: 71045-TC-FY; 81003; 84703; 87086; 87804; 99284-25; C9803-CS; U0003; U0005

== ENCOUNTER 2022-07-03 01:31 | Emergency (ER) | payer OTHER ==
[2022-07-03 01:47] VITALS: BP 114/73; PULSE 88; RESP 17; TEMP 98.3; BMI 25.7
[2022-07-03] MEDS ORDERED: DIPHTH,PERTUSS(ACELL),TET 0.5 ML DISP.SYRIN IM ONE ×2 (02:08→02:45)
[2022-07-03] MEDS ORDERED: KETOROLAC TROMETHAMINE 30 MG/1 ML VIAL IM ONE (02:08)
[2022-07-03] MEDS ORDERED: KETOROLAC TROMETHAMINE 30 MG/1 ML VIAL ONE (02:45)
== END 2022-07-03 04:09 | disposition home or self-care (01) ==
LOC: JER 01:31
PROC: 3E0234Z Introduction of Serum, Toxoid and Vaccine into Muscle, Percutaneous Approach (ICD-10-PCS; principal; 2022-07-03)
PROC: 3E0233Z Introduction of Anti-inflammatory into Muscle, Percutaneous Approach (ICD-10-PCS; 2022-07-03)
DX: S61.210A Laceration without foreign body of right index finger without damage to nail, initial encounter (principal); W27.2XXA Contact with scissors, initial encounter
CPT/HCPCS: 90471; 90715; 96372; 99284-25

== ENCOUNTER 2022-07-08 14:45 | Inpatient (IN) | payer OTHER ==
[2022-07-08] MEDS ORDERED: LACTATED RINGERS SOLUTION 1000 ML INFUS.BAG IV ONE (15:46)
[2022-07-08] MEDS ORDERED: morphine SULFATE 4 MG/ML VIAL IVPUSH ONE (15:46)
[2022-07-08] MEDS ORDERED: ONDANSETRON 4 MG/2 ML VIAL IVPUSH ONE (15:46)
[2022-07-08] MEDS ORDERED: ONDANSETRON 4 MG/2 ML VIAL ONE (16:04)
[2022-07-08 16:25] LABS: BASO % 0.5 % (0-2.0); HEMATOCRIT 41.1 % (32.4-45.2); HEMOGLOBIN 13.6 GM/dL (10.7-15.3); LYMPH % 24.7 % (8-40); MCH 28.8 pg (25.7-33.7); MEAN CELL VOLUME 87.4 fl (80-96); MEAN PLT VOLUME 8.6 fl (7.5-11.1); MONO % 6.9 % (3.8-10.2); NEUT % 63.9 % (42.8-82.8); PLATELET COUNT 242 10^3/uL (134-434); RDW 14.2 % (11.6-15.6); WHITE BLOOD COUNT 6.8 K/mm3 (4.0-10.0)
[2022-07-08 16:31] LABS: INR 0.99 (0.83-1.09); PROTHROMBIN TIME (PATIENT) 11.4 SEC (9.7-13.0)
[2022-07-08 16:34] LABS: ACTIVATED PTT 30.7 SECONDS (25.2-36.5)
[2022-07-08 16:44] LABS: CHLORIDE 109 mmol/L (98-107); SODIUM 140 mmol/L (136-145)
[2022-07-08 16:46] LABS: CALCIUM 9.2 mg/dL (8.5-10.1)
[2022-07-08 16:47] LABS: ALBUMIN 4.2 g/dl (3.4-5.0); ANION GAP 5 MMOL/L (8-16); BLOOD UREA NITROGEN 14.8 mg/dL (7-18); CO2 26 mmol/L (21-32); GLUCOSE,RANDOM 84 mg/dL (74-106); LIPASE 177 U/L (73-393); MAGNESIUM 2.2 mg/dL (1.8-2.4)
[2022-07-08 16:49] LABS: CREATININE 0.9 mg/dL (0.55-1.3)
[2022-07-08 16:50] LABS: PHOSPHOROUS 3.1 mg/dL (2.5-4.9); SGOT/AST 16 U/L (15-37); SGPT/ALT 18 U/L (13-61)
[2022-07-08 16:51] LABS: BILIRUBIN,TOTAL 0.4 mg/dL (0.2-1); TOT PROT 7.3 g/dl (6.4-8.2)
[2022-07-08 16:53] LABS: ALK PHOS 51 U/L (45-117)
[2022-07-08 17:40] LABS: PH,URINE 6.5 (5.0-8.0); URINE APPEARANCE CLEAR; URINE BILIRUBIN NEGATIVE (NEGATIVE); URINE COLOR YELLOW; URINE GLUCOSE (UA) NEGATIVE (NEGATIVE); URINE KETONE NEGATIVE (NEGATIVE); URINE LEUK ESTERASE NEGATIVE (NEGATIVE); URINE NITRITE NEGATIVE (NEGATIVE); URINE PROTEIN NEGATIVE (NEGATIVE); URINE UROBILINOGEN 0.2 mg/dL (0.2-1.0)
[2022-07-08] MEDS ORDERED: MAGNESIUM CITRATE 300 ML BOTTLE PO ONE (18:38)
[2022-07-08] MEDS ORDERED: SODIUM PHOSPHATE/NA BIPHOS 133 ML ENEMA PR ONE (18:38)
[2022-07-08] MEDS ORDERED: MINERAL OIL ENEMA 133 ML ENEMA PR ONE (19:12)
[2022-07-08] MEDS ORDERED: DOCUSATE SODIUM 100 MG CAPSULE (FP) PO ONE ×2 (19:12→19:18)
[2022-07-08] MEDS ORDERED: POLYETHYLENE GLYCOL (HEALTHYLAX) 3350 17 GM PACKET PO ONE (19:15)
[2022-07-08] MEDS ORDERED: POLYETHYLENE GLYCOL (HEALTHYLAX) 3350 17 GM PACKET ONE (19:18)
[2022-07-09] MEDS: LACTATED RINGERS SOLUTION 1,000 ML/1,000 ML INFUS.BAG IV SCH (00:16)
[2022-07-09 02:19] VITALS: BMI 27.1
[2022-07-09] MEDS ORDERED: ACETAMINOPHEN 325 MG TABLET (FP) PO PRN (05:16)
[2022-07-09 08:49] LABS: HEMATOCRIT 41.2 % (32.4-45.2); HEMOGLOBIN 13.4 GM/dL (10.7-15.3); MCH 28.5 pg (25.7-33.7); MCHC 32.6 g/dl (32.0-36.0); MEAN CELL VOLUME 87.5 fl (80-96); MEAN PLT VOLUME 8.8 fl (7.5-11.1); PLATELET COUNT 215 10^3/uL (134-434); RBC 4.71 M/mm3 (3.60-5.2); WHITE BLOOD COUNT 11.7 K/mm3 (4.0-10.0)
[2022-07-09 09:06] LABS: ALBUMIN 3.7 g/dl (3.4-5.0); CALCIUM 8.5 mg/dL (8.5-10.1); MAGNESIUM 1.6 mg/dL (1.8-2.4)
[2022-07-09 09:07] LABS: BLOOD UREA NITROGEN 12.4 mg/dL (7-18)
[2022-07-09 09:09] LABS: CREATININE 0.9 mg/dL (0.55-1.3); PHOSPHOROUS 1.8 mg/dL (2.5-4.9)
[2022-07-09 09:11] LABS: BILIRUBIN,TOTAL 1.4 mg/dL (0.2-1); TOT PROT 6.3 g/dl (6.4-8.2)
[2022-07-09] MEDS ORDERED: BISACODYL 10 MG SUPP.RECT PR ONE (09:45)
[2022-07-09] MEDS ORDERED: ACETAMINOPHEN 1000 MG/100 ML BAG IVPB PRN (09:53)
[2022-07-09] MEDS: DOCUSATE SODIUM 100 MG CAPSULE (FP) PO SCH (10:56)
[2022-07-09] MEDS: ESCITALOPRAM OXALATE 10 MG TABLET PO SCH (10:56)
[2022-07-09] MEDS: POLYETHYLENE GLYCOL (HEALTHYLAX) 3350 17 GM PACKET PO SCH (10:56)
[2022-07-09] MEDS: PANTOPRAZOLE SODIUM 40 MG VIAL IVPUSH SCH (10:56)
[2022-07-09] MEDS ORDERED: REMDESIVIR 200 MG in SODIUM CHLORIDE 250 ML IVPB ONE (11:00)
[2022-07-09] MEDS: ARIPiprazole 15 MG TABLET PO SCH (12:18)
[2022-07-09] MEDS ORDERED: AZITHROMYCIN IVPB 500 MG/250 ML BAG IVPB ONE ×2 (12:30→16:45)
[2022-07-09] MEDS ORDERED: MAGNESIUM SULF 50% (8.12 MEQ/2 ML-1 GM VIAL) IVPB ONE (13:00)
[2022-07-09 13:26] LABS: ANISOCYTOSIS 0; MACROCYTOSIS 0
[2022-07-09] MEDS: CEFTRIAXONE 1 GM in DEXTROSE 5%-WATER - 50 ML IVPB SCH (13:28)
[2022-07-09] MEDS: NAPH,MB-DB/K PH,MBDB POWDER PACKET PO SCH ×2 (14:15→22:29)
[2022-07-09] MEDS ORDERED: MAGNESIUM 2GM/50ML STERILE WATER IVPB IVPB ONE (15:15)
[2022-07-09] MEDS ORDERED: ONDANSETRON 4 MG/2 ML VIAL IVPUSH PRN (16:18)
[2022-07-09] MEDS ORDERED: KETOROLAC TROMETHAMINE 15 MG/ML VIAL IVPUSH ONE (16:19)
[2022-07-09] MEDS: SENNOSIDES 8.6MG TABLET (FP) PO SCH (22:28)
[2022-07-09] MEDS: MELATONIN 5 MG TABLETS PO PRN (22:36)
[2022-07-10] MEDS: LACTATED RINGERS SOLUTION 1,000 ML/1,000 ML INFUS.BAG IV SCH ×2 (08:08→23:27)
[2022-07-10 09:55] LABS: HEMATOCRIT 34.7 % (32.4-45.2); HEMOGLOBIN 11.6 GM/dL (10.7-15.3); MCH 29.4 pg (25.7-33.7); MCHC 33.5 g/dl (32.0-36.0); MEAN CELL VOLUME 87.9 fl (80-96); MEAN PLT VOLUME 8.8 fl (7.5-11.1); PLATELET COUNT 191 10^3/uL (134-434); RBC 3.95 M/mm3 (3.60-5.2); WHITE BLOOD COUNT 9.9 K/mm3 (4.0-10.0)
[2022-07-10] MEDS ORDERED: AZITHROMYCIN IVPB 250 MG in DEXTROSE 5%-WATER - 250 ML IVPB SCH (10:00)
[2022-07-10] MEDS ORDERED: ENOXAPARIN NA (PORCINE) 40 MG/0.4 ML DISP.SYRIN SQ SCH (10:00)
[2022-07-10 10:21] LABS: ALBUMIN 3.1 g/dl (3.4-5.0); BLOOD UREA NITROGEN 12.1 mg/dL (7-18); CALCIUM 8.3 mg/dL (8.5-10.1)
[2022-07-10 10:24] LABS: MAGNESIUM 2.3 mg/dL (1.8-2.4); PHOSPHOROUS 2.2 mg/dL (2.5-4.9)
[2022-07-10 10:25] LABS: CREATININE 0.7 mg/dL (0.55-1.3)
[2022-07-10 10:26] LABS: BILIRUBIN,TOTAL 0.6 mg/dL (0.2-1); TOT PROT 5.7 g/dl (6.4-8.2)
[2022-07-10] MEDS ORDERED: cefTRIAXone SODIUM 1 GM VIAL ONE (10:26)
[2022-07-10] MEDS: ARIPiprazole 15 MG TABLET PO SCH (10:29)
[2022-07-10] MEDS: NAPH,MB-DB/K PH,MBDB POWDER PACKET PO SCH ×2 (10:29→21:23)
[2022-07-10] MEDS: CEFTRIAXONE 1 GM in DEXTROSE 5%-WATER - 50 ML IVPB SCH (10:29)
[2022-07-10] MEDS: POLYETHYLENE GLYCOL (HEALTHYLAX) 3350 17 GM PACKET PO SCH (10:29)
[2022-07-10] MEDS: ESCITALOPRAM OXALATE 10 MG TABLET PO SCH (10:30)
[2022-07-10] MEDS: DOCUSATE SODIUM 100 MG CAPSULE (FP) PO SCH (10:30)
[2022-07-10] MEDS: PANTOPRAZOLE SODIUM 40 MG VIAL IVPUSH SCH (10:30)
[2022-07-10 15:26] LABS: HIV INTERPRETATION NEGATIVE (NEGATIVE)
[2022-07-10] MEDS: SENNOSIDES 8.6MG TABLET (FP) PO SCH (21:23)
[2022-07-10] MEDS: MELATONIN 5 MG TABLETS PO PRN (21:24)
[2022-07-10 23:27] VITALS: BP 125/86; PULSE 87; RESP 18; TEMP 98
== END 2022-07-10 23:20 | disposition left against medical advice (07) | DRG 137 ==
LOC: JER 14:45 → JERBED 21:18 → J8W 07-09 00:11 → OBSVTOIN 07-09 14:24
PROVIDERS: ADMIT Internal Medicine; ATTEND Internal Medicine
PROC: XW033E5 Introduction of Remdesivir Anti-infective into Peripheral Vein, Percutaneous Approach, New Technology Group 5 (ICD-10-PCS; principal; 2022-07-09)
DX: U07.1 COVID-19 (principal); F41.8 Other specified anxiety disorders; J45.909 Unspecified asthma, uncomplicated; K51.90 Ulcerative colitis, unspecified, without complications; K59.00 Constipation, unspecified; F20.9 Schizophrenia, unspecified; R11.2 Nausea with vomiting, unspecified; R10.84 Generalized abdominal pain; R50.9 Fever, unspecified; B97.4 Respiratory syncytial virus as the cause of diseases classified elsewhere; K52.9 Noninfective gastroenteritis and colitis, unspecified
CPT/HCPCS: 0241U-QW; 36415; 71045-TC-FY; 71046-TC-FY; 74177-TC; 80053; 81003; 83605; 83690; 83735; 83993; 84100; 84703; 85025; 85027; 85610; 85651; 85730; 86140; 86850; 86900; 86901; 87040; 87045; 87046; 87086; 87186; 87324; 87389; 87427; 87449; 87496; 87899; 93005; 93010; 99285-25; C9399; G0378; Q9967